=== PATIENT | female | born 1995 | race Caucasian/White ===

== ENCOUNTER 2017-08-20 11:40 | Emergency (ER) | payer OTHER ==
[2017-08-20 11:50] VITALS: TEMP 98.2; O2SAT 100; BMI 27.9
[2017-08-20] MEDS ORDERED: Sodium Chloride 0.9% 1,000 ML IV STA (12:23)
[2017-08-20 12:34] LABS: PH,URINE 8.5 (4.7-8.0); URINE BILIRUBIN NEGATIVE (NEGATIVE); URINE BLOOD LARGE (NEGATIVE); URINE GLUCOSE (UA) NEGATIVE (NEGATIVE); URINE LEUKOCYTE ESTERASE SMALL Leu/uL (NEGATIVE); URINE PROTEIN 30 mg/dL (<30 mg/dL); URINE UROBILINOGEN 0.2 E.U./dL (<1 E.U./dL)
[2017-08-20 12:36] LABS: URINE APPEARANCE SL CLOUDY (CLEAR); URINE COLOR YELLOW (YELLOW)
[2017-08-20 12:38] LABS: URINE RBC 25 - 30 /hpf (0-2)
[2017-08-20 12:39] LABS: URINE AMORPHOUS SEDIMENT FEW; URINE BACTERIA MANY (NEG)
--- NOTE | 2017-08-20 12:39 | ED PDOC ---
Arrival/HPI - General Historian: Patient - History of Present Illness Time/Duration: < week Symptom Course: Worsening <Kaylee Blake - Last Filed: 08/20/17 17:29> <Antonio Perez DO - Last Filed: 08/20/17 22:32> - General Chief Complaint: GI Problem Time Seen by Provider: 08/20/17 11:44 - History of Present Illness Narrative History of Present Illness (Text): 08/20/17 12:26 21 yo F with PMH of asthma presents to ED complaining of nausea and vomiting today, preceded by 2 days of "head cold" (congestion, headache, and malaise). She started vomiting today, 5 times, white sputum, nonbloody nonbilious. She denies fever, chills, chest pain, shortness of breath. She admits to abdominal pain, bilateral lower quadrants. She also admits to headache, which is similar to the migraines she always has. She also admits to dysuria with first urination in the morning, cloudy urine, and foul odor in urine. She is sexually active with one male partner for the past 6 months, intermittently uses protection. (Kaylee Blake) Past Medical History - Provider Review Nursing Documentation Reviewed: Yes - Travel History Have you recently traveled outside [place] w/in the past 3 mons?: No - Past History Past History: No Previous - Infectious Disease Hx of Infectious Diseases: None - Tetanus Immunization Tetanus Immunization: Unknown - Reproductive Menopause: No Currently : No - Pulmonary Hx Asthma: Yes - Musculoskeletal/Rheumatological Hx Falls: No - Psychiatric Hx Substance Use: Yes Other/Comment: Fibromyalgia - Anesthesia Hx Anesthesia: No <Kaylee Blake - Last Filed: 08/20/17 17:29> Family/Social History - Physician Review Nursing Documentation Reviewed: Yes Family/Social History: No Known Family HX Smoking Status: Never Smoked Hx Alcohol Use: Yes Frequency of alcohol use: Socially Hx Substance Use: Yes Substance used: marijuana <Kaylee Blake - Last Filed: 08/20/17 17:29> Allergies/Home Meds <Kaylee Blake - Last Filed: 08/20/17 17:29> <Antonio Perez DO - Last Filed: 08/20/17 22:32> Allergies/Adverse Reactions: Allergies No Known Allergies Allergy (Verified 01/11/15 14:56) Review of Systems - Review of Systems Constitutional: Fatigue Eyes: Normal ENT: Sinus Congestion Respiratory: Normal Cardiovascular: Normal Gastrointestinal: Abdominal Pain, Nausea, Vomiting Genitourinary Female: Dysuria, Urine Output Changes Musculoskeletal: Normal Skin: Normal Neurological: Headache Endocrine: Normal Hemo/Lymphatic: Normal Psychiatric: Normal <Kaylee Blake - Last Filed: 08/20/17 17:29> Physical Exam Vital Signs Reviewed: Yes Temperature: Afebrile Blood Pressure: Normal Pulse: Regular Respiratory Rate: Normal Appearance: Positive for: Well-Appearing, Non-Toxic, Comfortable Pain Distress: None Mental Status: Positive for: Alert and Oriented X 3 - Systems Exam Head: Present: Atraumatic, Normocephalic Pupils: Present: PERRL Extroacular Muscles: Present: EOMI Conjunctiva: Present: Normal Mouth: Present: Moist Mucous Membranes Neck: Present: Normal Range of Motion Respiratory/Chest: Present: Clear to Auscultation, Good Air Exchange. No: Respiratory Distress, Accessory Muscle Use Cardiovascular: Present: Regular Rate and Rhythm, Normal S1, S2 Abdomen: Present: Tenderness (mild, b/l LQ), Normal Bowel Sounds. No: Distention, Peritoneal Signs, Rebound, Guarding, McBurney's Point Tender Upper Extremity: Present: Normal Inspection. No: Cyanosis, Edema Lower Extremity: Present: Normal Inspection. No: Edema, CALF TENDERNESS Neurological: Present: GCS=15, CN II-XII Intact, Speech Normal Skin: Present: Warm, Dry, Normal Color Psychiatric: Present: Alert, Oriented x 3, Normal Insight, Normal Concentration <Kaylee Blake - Last Filed: 08/20/17 17:29> Vital Signs Temp Pulse Resp BP Pulse Ox 08/20/17 14:01 64 17 128/75 100 08/20/17 11:49 98.2 F 76 18 135/64 100 Medical Decision Making <Kaylee Blake - Last Filed: 08/20/17 17:29> <Antonio Perez DO - Last Filed: 08/20/17 22:32> ED Course and Treatment: 08/20/17 13:19 Impression: Nausea, vomiting, abdominal pain, URI Plan: -- Labs: CBC, CMP, UA -- Tylenol for headache Progress Note: -- Patient reports that she took tylenol at home before coming; ordered toradol IV for headache -- CBC and CMP unremarkable -- UA shows likely UTI and trichomonas; ordered urine gonorrhea and chlamydia; will treat empirically -- 2g azithromycin PO for chlamydia -- 250mg ceftriaxone IM for gonorrhea -- 2g metronidazole PO for trichomonas -- Discussed with patient results, and importance of repeat testing in one month to confirm clearance, informing her sexual partners, and discussed safe sex practices (Kaylee Blake) Patient Seen With Resident: In agreement with resident note which contains more details about the patient. Patient was seen and evaluated with resident. Came up with plan and treatment together. A 21 year old female with abdominal pain, nausea, vomiting, URI, congestion, headache and malaise. Patient with mild b/l LQ abdominal tenderness, no rebound , no guarding, no McBurney's Point Tenderness. Ordered labs and will give patient Tylenol for headache. (Antonio Perez DO) - Lab Interpretations Lab Results: 08/20/17 12:23 08/20/17 13:00 Lab Results 08/20/17 13:00: Sodium 144, Potassium 3.7, Chloride 109 H, Carbon Dioxide 21, Anion Gap 18, BUN 11, Creatinine 0.6 L, Est GFR ( Amer) > 60, Est GFR ( Non-Af Amer) > 60, Random Glucose 82, Calcium 9.1, Total Bilirubin 0.2, AST 19, ALT 24, Alkaline Phosphatase 73, Total Protein 8.0, Albumin 4.7, Globulin 3.4, Albumin/Globulin Ratio 1.4 08/20/17 12:23: Urine Color Yellow, Urine Appearance Sl cloudy, Urine pH 8.5, Ur Specific [place] 1.015, Urine Protein 30 H, Urine Glucose (UA) Negative, Urine Ketones Negative, Urine Blood Large H, Urine Nitrate Negative, Urine Bilirubin Negative, Urine Urobilinogen 0.2, Ur Leukocyte Esterase Small H, Urine RBC 25 - 30, Urine WBC 10 - 15, Ur Epithelial Cells 10 - 12, Amorphous Sediment Few, Urine Bacteria Many, Urine Other Trichomonas 08/20/17 12:23: WBC 8.5 D, RBC 3.79, Hgb 10.2 L, Hct 32.2 L, MCV 85.0, MCH 26.9 , MCHC 31.7, RDW 14.2, Plt Count 444, MPV 11.0, Gran % 80.6 H, Lymph % (Auto) 13.6 L, Dent % (Auto) 4.8, Eos % (Auto) 0.8 L, Baso % (Auto) 0.2, Gran # 6.87 H , Lymph # (Auto) 1.2, Dent # (Auto) 0.4, Eos # (Auto) 0.1, Baso # (Auto) 0.02 - Medication Orders Current Medication Orders: Discontinued Medications Acetaminophen (Tylenol 325mg Tab) 650 mg PO STAT STA Stop: 08/20/17 12:24 Last Admin: 08/20/17 13:01 Dose: Not Given Non-Admin Reason: Patient Refused Azithromycin (Zithromax) 1,000 mg PO STAT STA PRN Reason: Protocol Stop: 08/20/17 13:13 Last Admin: 08/20/17 13:34 Dose: 1,000 mg Ceftriaxone Sodium (Rocephin) 250 mg IM STAT STA PRN Reason: Protocol Stop: 08/20/17 13:13 Last Admin: 08/20/17 13:33 Dose: 250 mg IM Administration Charges Document 08/20/17 13:33 SF (Rec: 08/20/17 13:34 SF [id number] Injection Site MAR Injection Site Left Gluteus Cj Charges for Administration # of IM Administrations 1 Sodium Chloride (Sodium Chloride 0.9%) 1,000 mls @ 999 mls/hr IV .Q1H1M STA Stop: 08/20/17 13:23 Last Admin: 08/20/17 12:30 Dose: 999 mls/hr eMAR Start Stop Document 08/20/17 12:30 SF (Rec: 08/20/17 13:07 SF [id number] Intravenous Solution Start Date 08/20/17 Start Time 12:30 End Date 08/20/17 End time 13:31 Total Infusion Time 61 Ketorolac Tromethamine (Toradol) 15 mg IVP STAT STA Stop: 08/20/17 13:13 Last Admin: 08/20/17 13:34 Dose: 15 mg MAR Pain Assessment Document 08/20/17 13:34 SF (Rec: 08/20/17 13:34 SF [id number] Pain Reassessment Is this a pain reassessment? Yes Sleep Is patient sleeping during reassessment? No Presence of Pain Presence of Pain Yes IVP Administration Document 08/20/17 13:34 SF (Rec: 08/20/17 13:34 SF [id number] Charges for Administration # of IVP Administrations 1 Metronidazole (Flagyl) 2,000 mg PO STAT STA PRN Reason: Protocol Stop: 08/20/17 13:13 Last Admin: 08/20/17 13:34 Dose: 2,000 mg Ondansetron HCl (Zofran Odt) 8 mg PO STAT STA Stop: 08/20/17 14:09 Last Admin: 08/20/17 14:11 Dose: 8 mg <Kaylee Blake - Last Filed: 08/20/17 17:29> - PA / FLORAL DESIGN TEACHER / Resident Statement ANDRIA has reviewed & agrees with the documentation as recorded. / has examined the patient and agrees with the treatment plan. - Scribe Statement The provider has reviewed the documentation as recorded by the Scribe <Antonio Perez DO - Last Filed: 08/20/17 22:32> - Scribe Statement Clifford Rosado Provider Scribe Attestation: All medical record entries made by the Scribe were at my direction and personally dictated by me. I have reviewed the chart and agree that the record accurately reflects my personal performance of the history, physical exam, medical decision making, and the department course for this patient. I have also personally directed, reviewed, and agree with the discharge instructions and disposition. (Antonio Perez DO) Disposition/Present on Arrival - Present on Arrival Any Indicators Present on Arrival: No History of DVT/PE: No History of Uncontrolled Diabetes: No Urinary Catheter: No History of Decub. Ulcer: No History Surgical Site Infection Following: None - Disposition Have Diagnosis and Disposition been Completed?: Yes Disposition Time: 14:00 <Kaylee Blake - Last Filed: 08/20/17 17:29> - Disposition Disposition Time: 13:10 <Antonio Perez DO - Last Filed: 08/20/17 22:32> - Disposition Diagnosis: Trichimoniasis, UTI (urinary tract infection), Fibromyalgia Disposition: HOME/ ROUTINE Condition: GOOD Discharge Instructions (ExitCare): Trichomoniasis, Urinary Tract Infection, Adult (DC) Additional Instructions: Thank you for letting us take care of you today. The emergency medical care you received today was directed at your acute symptoms. If you were prescribed any medication, please fill it and take as directed. It may take several days for your symptoms to resolve. Return to the Emergency Department if your symptoms worsen, do not improve, or if you have any other problems. Please contact your doctor or call one of the physicians/clinics you have been referred to that are listed on the Patient Visit Information form that is included in your discharge packet. Bring any paperwork you were given at discharge with you along with any medications you are taking to your follow up visit. Our treatment cannot replace ongoing medical care by a primary care provider (PCP) outside of the emergency department. Thank you for allowing the [facility] team to be part of your care today. Follow up with your primary doctor in 2-3 days for re-evaluation and further management. Prescriptions: Nitrofurantoin Macrocrystals [Macrobid] 100 mg PO BID #10 cap Referrals: Mary Leon MD [Primary Care Provider] - Follow up with primary Forms: WORK NOTE
[2017-08-20 12:50] LABS: BASO # 0.02 K/mm3 (0.0-2.0); BASO % 0.2 % (0.0-3.0); EOS # 0.1 (0.0-0.7); EOS % 0.8 % (1.5-5.0); GRAN # 6.87 (1.4-6.5); GRAN % 80.6 % (50.0-68.0); HEMOGLOBIN 10.2 g/dL (12.0-16.0); LYMPH # 1.2 (1.2-3.4); LYMPH % 13.6 % (22.0-35.0); MEAN CORPUSCULAR HEMOGLOBIN 26.9 pg (25.0-35.0); MEAN CORPUSCULAR HGB CONC 31.7 g/dl (31.0-37.0); MONO # 0.4 (0.1-0.6); MONO % 4.8 % (1.0-6.0); RBC 3.79 10^6/uL (3.5-6.1); RED CELL DISTRIBUTION WIDTH 14.2 % (11.5-14.5); WHITE BLOOD COUNT 8.5 10^3/ul (4.5-11.0)
[2017-08-20] MEDS ORDERED: cefTRIAXone (Rocephin) 250 mg Inj IM STA (13:12)
[2017-08-20 13:18] LABS: ALB/GLOB RATIO 1.4 (1.1-1.8); ALBUMIN 4.7 g/dL (3.0-4.8); ALT/SGPT 24 U/L (7-56); AST/SGOT 19 U/L (14-36); BLOOD UREA NITROGEN 11 mg/dL (7-21); CALCIUM 9.1 mg/dL (8.4-10.5); GFR AFRICAN-AMERICAN > 60; GFR NON-AFRICAN AMERICAN > 60
[2017-08-20 14:25] VITALS: BP 128/75; PULSE 64; RESP 17
== END 2017-08-20 14:02 | disposition home or self-care (01) ==
LOC: ED 11:40
DX: N39.0 Urinary tract infection, site not specified (principal); A59.9 Trichomoniasis, unspecified; M79.7 Fibromyalgia
CPT/HCPCS: 80053; 81001; 85025; 87086; 87491; 87591; 96361; 96372; 96374; 99285; J0696; J1885; J7040